=== PATIENT | female | born 1955 | race Caucasian/White ===

== ENCOUNTER → 2016-08-16 | Outpatient (CLI) | payer OTHER ==
[~2016-08-16] MED LIST: AMLO5TAB2 PO; ASPI-496 PO; BENA20TA2 PO; BLAC20TA PO; CALC-451 PO; CINN500C2 PO; ESTR0.5T PO; EVE1000C3 PO; FLAX1000 PO; GARL10002 PO; GINK120T3 PO; GLIP5TAB22 PO; GLUC1CAP13 PO; LEVO50TA5 PO; LINA5TAB PO; MEDR2.5T30 PO; METF10002 PO; METR55GE TD; MILK150C2 PO; MULT-516 PO; OMEG1CAP24 PO; OXYC-302 PO; PANAX GINSENG PO; POLY17PO5 PO; PRAV20TA2 PO; RED600TA PO; ST.300CA PO; VISIPAQUE 270 MG/ML, 50ML BOTTLE ONE
== END | disposition home or self-care (01) ==
LOC: RAD 10:54
PROVIDERS: ATTEND Specialist
DX: C18.0 Malignant neoplasm of cecum (principal)
CPT/HCPCS: 36598; 76000; J1642; Q9966

== ENCOUNTER 2018-11-11 11:00 | Outpatient (CLI) | payer MEDICARE ==
[~2018-11-11 11:00] MED LIST changes: +AMLO-150 PO; -AMLO5TAB2 PO; -BENA20TA2 PO; +BENA20TA54 PO; -VISIPAQUE 270 MG/ML, 50ML BOTTLE ONE
[2018-11-11] MEDS ORDERED: OMNIPAQUE 350 MG/ML, 100ML BOTTLE ONE (15:18)
== END 2018-11-11 23:59 | disposition home or self-care (01) ==
LOC: CFH 11:00
PROVIDERS: ATTEND Specialist
DX: C18.0 Malignant neoplasm of cecum (principal)
CPT/HCPCS: 71260; 74177; Q9967

== ENCOUNTER 2019-05-04 09:33 | Outpatient (CLI) | payer MEDICARE ==
[2019-05-04] MEDS ORDERED: OMNIPAQUE 350 MG/ML, 100ML BOTTLE ONE (16:08)
== END 2019-05-04 23:59 | disposition home or self-care (01) ==
LOC: CFH 09:33
PROVIDERS: ATTEND Specialist
DX: C18.0 Malignant neoplasm of cecum (principal); R19.00 Intra-abdominal and pelvic swelling, mass and lump, unspecified site
CPT/HCPCS: 71260; 74177; Q9967

== ENCOUNTER → 2019-12-15 | Outpatient (CLI) | payer MEDICARE ==
[~2019-12-15] MED LIST changes: +OMNIPAQUE 350 MG/ML, 100ML BOTTLE ONE
== END | disposition home or self-care (01) ==
LOC: CFH 12:07
PROVIDERS: ATTEND Specialist
DX: C18.0 Malignant neoplasm of cecum (principal)
CPT/HCPCS: 71260; 74177; Q9967

== ENCOUNTER 2020-12-27 09:49 | Outpatient (CLI) | payer MEDICARE ==
[~2020-12-27 09:49] MED LIST changes: -OMNIPAQUE 350 MG/ML, 100ML BOTTLE ONE; -OXYC-302 PO; +OXYC1TAB12 PO
[2020-12-27 10:17] LABS: ALANINE AMINOTRANSFERASE 39 U/L (12-78); ALBUMIN 3.8 g/dL (3.4-5.0); ANION GAP 6 mmol/L (5-15); CALCIUM 9.4 mg/dL (8.5-10.1); CHLORIDE 106 mmol/L (98-107); CHOLESTEROL, TOTAL 171 mg/dL (140-239); CREATININE 0.68 mg/dL (0.55-1.02)
[2020-12-27 10:25] LABS: ALKALINE PHOSPHATASE 76 U/L (45-117); BILIRUBIN,TOTAL 0.5 mg/dL (0.2-1.0); CHOL/HDL RATIO 2.9; FREE T4 (FREE THYROXINE) 1.04 ng/dL (0.76-1.46); HDL CHOL % 35 % (28-40); HDL CHOLESTEROL (DIRECT) 59 mg/dL (40-60); LDL CHOLESTEROL,CALCULATED 75 mg/dL (54-169); LDL/HDL RATIO 1.3 (0.5-3.0); TRIGLYCERIDES 185 mg/dL (50-200); VLDL CHOLESTEROL 37 mg/dL (0-25)
== END 2020-12-27 23:59 | disposition home or self-care (01) ==
LOC: LAB 09:49
PROVIDERS: ATTEND Specialist
DX: Z51.11 Encounter for antineoplastic chemotherapy (principal); Z51.89 Encounter for other specified aftercare; C18.0 Malignant neoplasm of cecum; D70.1 Agranulocytosis secondary to cancer chemotherapy; Z45.2 Encounter for adjustment and management of vascular access device
CPT/HCPCS: 36415; 80053; 80061; 82043; 82378; 82570; 83036; 84439; 84443